=== PATIENT | female | born 1945 | race Caucasian/White ===

== ENCOUNTER → 2020-10-21 | Day surgery (SDC) | payer MEDICARE ==
[~2020-10-21] MED LIST: ANORO ELLIPTA1 EACH INH; DONEPEZIL HCL10 MG PO; HCTZ25 MG PO; MEMANTINE HCL10 MG PO; PHOSLO667 MG PO; SIMVASTATIN40 MG PO; VITAMIN B122500 MC1 PO
[2020-10-21 09:31] LABS: HCT 38.4 % (37.0-47.0); HGB 13.5 g/dl (12.5-16.0); MCH 33.3 pg (25.0-31.0); MCHC 35.2 g/dL (32.0-36.0); MCV 94.8 fL (78.0-100.0); MPV 10.2 fL (6.0-9.5); RBC 4.05 M/uL (4.20-5.40); RDW 11.8 % (11.5-14.0)
[2020-10-21 09:39] LABS: ALBUMIN 4.2 g/dL (3.4-5.0); BILIRUBIN - TOTAL 1.3 mg/dL (0.2-1.0); BUN/CREAT RATIO (CALC) 12.8 RATIO; CREATININE 1.49 mg/dL (0.51-0.95); POTASSIUM 2.7 mmol/L (3.5-5.1); TOTAL PROTEIN 8.2 g/dL (6.4-8.2)
--- NOTE | 2020-10-21 13:28 | NUR ---
REVIWED PT LABS TO FINALIZE CHART AND NOTICED SOME LABS WERE OFF. (eg.POTASSIUM,SODIUM, BUN, CREAT.) PT ALREADY DISCHARGED. CALLED AND SPOKE WITH JUNIOR AT DR. PAREDES OFFICE, REQUESTED TO FAX LABS TO DR. PAREDES OFFICE. AND THEY WOULD FOLLOW UP. FAXED CMP RESULTS TO DR. PAREDES OFFICE 10/21/20 AT 1325.
== END | disposition home or self-care (01) ==
LOC: FAS 08:47
PROVIDERS: Surgery
DX: D12.3 Benign neoplasm of transverse colon (principal); G30.9 Alzheimer's disease, unspecified; F02.80 Dementia in other diseases classified elsewhere, unspecified severity, without behavioral disturbance, psychotic disturbance, mood disturbance, and anxiety; J44.9 Chronic obstructive pulmonary disease, unspecified; D64.9 Anemia, unspecified; Z87.891 Personal history of nicotine dependence; Z79.899 Other long term (current) drug therapy
CPT/HCPCS: 36415; 80053; 88305; J2704; J7120